=== PATIENT | male | born 1980 | race Caucasian/White ===

== ENCOUNTER 2018-10-10 06:34 | Emergency (ER) | payer MEDICAID, OTHER ==
[2018-10-10] MEDS ORDERED: KETOROLAC 30 MG/ML 1 ML VIAL IVP STA (07:14)
[2018-10-10] MEDS ORDERED: SODIUM CHLORIDE 0.9% 1,000 ML IV STA (07:14)
--- NOTE | 2018-10-10 07:17 | ED ---
General Adult HPI - General Chief complaint: Abdominal Pain Stated complaint: [facility]-FALL,ABD PAIN Source: patient Mode of arrival: ambulatory Limitations: no limitations - Related Data Home Medications Medication Instructions Recorded Confirmed Ibuprofen [Motrin Ib] 400 mg PO Q6H PRN 10/10/18 10/10/18 Previous Rx's Medication Instructions Recorded Polyethylene Glycol 3350 [Miralax] 17 gm PO DAILY #4 packet 10/10/18 Allergies Allergy/AdvReac Type Severity Reaction Status Date / Time No Known Allergies Allergy Verified 10/10/18 07:24 Review of Systems ROS Statement: Those systems with pertinent positive or pertinent negative responses have been documented in the HPI. ROS Other: All systems not noted in ROS Statement are negative. Past Medical History Past Medical History: No Reported History History of Any Multi-Drug Resistant Organisms: None Reported Past Surgical History: Orthopedic Surgery Additional Past Surgical History / Comment(s): patella surgery right knee Past Anesthesia/Blood Transfusion Reactions: No Reported Reaction Past Psychological History: No Psychological Hx Reported Smoking Status: Current every day smoker Past Alcohol Use History: None Reported Past Drug Use History: None Reported - Past Family History Mother History Unknown: Yes Family Medical History: No Reported History General Exam Limitations: no limitations Course Vital Signs 10/10/18 06:38 Temperature 97.7 F Pulse Rate 53 L Respiratory 18 Rate Blood Pressure 129/85 O2 Sat by Pulse 100 Oximetry Medical Decision Making - Medical Decision Making Dictation was produced using [employer] dictation software. please excuse any grammatical, word or spelling errors. Chief Complaint: 37-year-old male in no apparent medical problems presents with abdominal pain. History of Present Illness: Patient is 37-year-old male. Patient was at work when he slipped. He grabbed hold of the gate door. He states that he slipped. During the event he hurt his abdomen. Denies any trauma directly to the abdomen. Patient states he has no nausea or vomiting. Patient states that his pain is worse with flexing of the abdominal muscles, truncal rotation and palpation to the area. The ROS documented in this emergency department record has been reviewed and confirmed by me. Those systems with pertinent positive or negative responses have been documented in the HPI. All other systems are other negative and/or noncontributory. PHYSICAL EXAM: General Impression: Alert and oriented x3, not in acute distress HEENT: Normocephalic atraumatic, extra-ocular movements intact, pupils equal and reactive to light bilaterally, mucous membranes moist. Cardiovascular: Heart regular rate and rhythm, S1&S2 audible, no murmurs, rubs or gallops Chest: Lungs clear to auscultation bilaterally, no rhonchi, no wheeze, no rales Abdomen: Bowel sounds present, abdomen soft, tenderness to palpation to the left abdomen Musculoskeletal: Pulses present and equal in all extremities, no peripheral edema Motor: Power 5/5 bilaterally, no focal deficits noted Neurological: CN II-XII grossly intact, no focal motor or sensory deficits noted Skin: Intact with no visualized rashes vital signs upon arrival are within acceptable limits. Psych: Normal affect and mood exam: No internal or groin bulge with Valsalva ED course: 37-year-old male presents with abdominal pain. Vital signs upon arrival are within acceptable limits. Laboratory evaluation obtained showing no remarkable findings. Computed tomography scan was obtained showing moderate fecal retention. Patient given Toradol. He is feeling better. Patient also given intravenous fluids. Patient's symptoms could be secondary to strain versus constipation. Patient given prescription for MiraLAX. Told to rest over the weekend. Advised to take by mouth [id number] analgesics for his pain symptoms. - Lab Data Result diagrams: 10/10/18 07:45 10/10/18 07:45 Lab Results 10/10/18 10/10/18 10/10/18 Range/Units 07:45 07:45 07:45 WBC 6.5 (3.8-10.6) k/uL RBC 4.59 (4.30-5.90) m/uL Hgb 13.9 (13.0-17.5) gm/dL Hct 42.4 (39.0-53.0) % MCV 92.2 (80.0-100.0) fL MCH 30.3 (25.0-35.0) pg MCHC 32.9 (31.0-37.0) g/dL RDW 12.6 (11.5-15.5) % Plt Count 202 (150-450) k/uL Neutrophils % 70 % Lymphocytes % 20 % Monocytes % 5 % Eosinophils % 3 % Basophils % 0 % Neutrophils # 4.6 (1.3-7.7) k/uL Lymphocytes # 1.3 (1.0-4.8) k/uL Monocytes # 0.3 (0-1.0) k/uL Eosinophils # 0.2 (0-0.7) k/uL Basophils # 0.0 (0-0.2) k/uL PT 9.8 (9.0-12.0) sec INR 0.9 (<1.2) Sodium 141 (137-145) mmol/L Potassium 5.2 H (3.5-5.1) mmol/L Chloride 106 (98-107) mmol/L Carbon Dioxide 26 (22-30) mmol/L Anion Gap 9 mmol/L BUN 17 (9-20) mg/dL Creatinine 0.75 (0.66-1.25) mg/dL Est GFR (CKD-EPI)AfAm >90 (>60 ml/min/1.73 sqM) Est GFR (CKD-EPI)NonAf >90 (>60 ml/min/1.73 sqM) Glucose 104 H (74-99) mg/dL Calcium 9.4 (8.4-10.2) mg/dL Disposition Clinical Impression: Abdominal pain Disposition: HOME SELF-CARE Condition: Good Instructions (If sedation given, give patient instructions): Abdominal Pain (ED ) Prescriptions: Polyethylene Glycol 3350 [Miralax] 17 gm PO DAILY #4 packet Is patient prescribed a controlled substance at d/c from ED?: No Referrals: Farshad Pak DO [Primary Care Provider] - 1-2 days Time of Disposition: 09:03
[2018-10-10 08:00] LABS: Basophils % (A) 0 %; Eosinophils # (A) 0.2 k/uL (0-0.7); Eosinophils % (A) 3 %; HCT 42.4 % (39.0-53.0); HGB 13.9 gm/dL (13.0-17.5); Lymphocytes # (A) 1.3 k/uL (1.0-4.8); Lymphocytes % (A) 20 %; MCH 30.3 pg (25.0-35.0); MCHC 32.9 g/dL (31.0-37.0); MCV 92.2 fL (80.0-100.0); Mean Platelet Volume 6.8; Monocytes # (A) 0.3 k/uL (0-1.0); Monocytes % (A) 5 %; Neutrophils # (A) 4.6 k/uL (1.3-7.7); Neutrophils % (A) 70 %; Platelet Count 202 k/uL (150-450); RBC 4.59 m/uL (4.30-5.90); RDW 12.6 % (11.5-15.5); WBC 6.5 k/uL (3.8-10.6)
[2018-10-10 08:08] LABS: Anion Gap 9 mmol/L; Blood Urea Nitrogen 17 mg/dL (9-20); Calcium 9.4 mg/dL (8.4-10.2); Carbon Dioxide 26 mmol/L (22-30); Chloride 106 mmol/L (98-107); Glucose 104 mg/dL (74-99); Potassium 5.2 mmol/L (3.5-5.1); Sodium 141 mmol/L (137-145)
[2018-10-10 08:14] LABS: INR 0.9 (<1.2); Prothrombin Time 9.8 sec (9.0-12.0)
--- NOTE | 2018-10-10 08:34 | CT ---
EXAMINATION TYPE: CT abdomen pelvis w con DATE OF EXAM: 10/10/2018 COMPARISON: None INDICATION: Fall-Abdominal pain DLP: 1229.7 mGycm, Automated exposure control for dose reduction was used. CONTRAST: 100 ml mL of Isovue 300. Study performed without Oral Contrast TECHNIQUE: Axial images were obtained from above the diaphragm to the pubic rami in the axial plane a t 5 mm thick sections. Reconstructed images are reviewed on the computer in the coronal plane. FINDINGS: Limited CT sections are obtained the lung bases. The lung bases are clear. CT ABDOMEN: Liver: Normal Spleen: Normal Pancreas: Normal Adrenal glands: The adrenal glands are normal. Gallbladder: Normal Kidneys: No masses are evident. No hydronephrosis is present. No cysts are present. Delayed images were obtained through the kidneys, which remain unremarkable. Aorta: Normal Inferior vena cava: Normal. CT PELVIS: Loops of bowel within the abdomen and pelvis are normal. Abundant fecal debris is present through out the colon to the level the rectum. There is some fecal debris within the small bowel loops. Appendix: Normal as visualized. Urinary bladder: Normal. Genitourinary structures: Prostate is unremarkable Osseous structures: No suspicious lytic or sclerotic lesions. IMPRESSIONS: 1. Moderate fecal retention throughout the colon. Some fecal debris is in the terminal ileum
[2018-10-10 09:16] VITALS: BP 111/72; PULSE 55; RESP 20; TEMP 98.1
== END 2018-10-10 09:26 | disposition home or self-care (01) ==
LOC: EC 06:34
DX: R10.9 Unspecified abdominal pain (principal); K59.00 Constipation, unspecified; F17.200 Nicotine dependence, unspecified, uncomplicated; W01.0XXA Fall on same level from slipping, tripping and stumbling without subsequent striking against object, initial encounter; Y92.69 Other specified industrial and construction area as the place of occurrence of the external cause; Y99.0 Civilian activity done for income or pay
CPT/HCPCS: 99284; 96374; 96361; 36415; 80048; 85025; 85610; 74177; J1885; Q9967

== ENCOUNTER → 2024-09-04 | Outpatient (CLI) | payer BC ==
--- NOTE | 2024-09-20 09:59 | MR ---
EXAMINATION TYPE: MR ankle LT wo con DATE OF EXAM: 09/04/2024 9:37 PM COMPARISON: None. 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 FINDINGS: Some cystic change and increased T2 signal involving the posterior inferior talus at the ar ticulation with the calcaneus. There is subtle increased T2 signal involving the adjacent superior ca lcaneus. Some loss of normal sinus tarsi fat is seen at this level. There is mild to moderate narrowing at the calcaneal cuboid joint. There is mild to moderate narrowin g and spurring at the talonavicular joint. Lisfranc joints are maintained. An os trigonum is seen. Andrade rrounding edema is noted. No definitive significant osseous edema. No joint effusion. Intact anterior and posterior syndesmosis. Intact anterior and posterior talofibular ligaments. The l atter is thickened. Intact but thickened medial deltoid ligaments. Distal Achilles tendon is intact. Visualized plantar fascia is unremarkable. Intact PT tendon. Intact peroneal tendons. IMPRESSION: 1. Os trigonum with possible posterior impingement, correlate clinically. 2. 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 3. Grade 1 or 2 injury to the posterior talofibular and the medial deltoid ligaments suspected chroni c. [facility], , 09/20/2024 9:57 AM
== END | disposition home or self-care (01) ==
LOC: RADMRIMAIN 21:45
PROVIDERS: ATTEND Podiatrist
DX: M25.772 Osteophyte, left ankle (principal); M12.872 Other specific arthropathies, not elsewhere classified, left ankle and foot

== ENCOUNTER 2024-10-09 07:55 | Day surgery (SDC) | payer BC, OTHER ==
[~2024-10-09 07:55] MED LIST: HYDROmorphone 0.5 MG/0.5 ML SYRINGE IVP PRN
[2024-10-09] MEDS: IV FLUID CONTINUATION 1,000 ML IV ONE (08:39)
[2024-10-09] MEDS: LACTATED RINGERS 1,000 ML IV SCH (08:43)
[2024-10-09] MEDS: DEXAMETHASONE SOD PHOSPHATE 4 MG/ML 1 ML VIAL IV ONE (08:47)
[2024-10-09] MEDS: ONDANSETRON 4 MG/2 ML VIAL IVP ONE (08:47)
[2024-10-09] MEDS: MIDAZOLAM 2 MG/2 ML VIAL IV ONE (08:50)
[2024-10-09] MEDS ORDERED: fentaNYL (PF) 50 MCG/ML 2 ML AMP ONE (10:14)
[2024-10-09] MEDS ORDERED: diphenhydrAMINE 50 MG/ML 1 ML VIAL ONE (10:14)
[2024-10-09] MEDS ORDERED: PROPOFOL 10 MG/ML 20 ML VIAL IV ONE (10:14)
[2024-10-09] MEDS ORDERED: MIDAZOLAM 2 MG/2 ML VIAL ONE (10:14)
[2024-10-09] MEDS ORDERED: DEXAMETHASONE SOD PHOSPHATE 4 MG/ML 1 ML VIAL ONE (10:14)
[2024-10-09] MEDS ORDERED: ROPIVACAINE 5 MG/ML 30 ML VIAL ONE (10:14)
[2024-10-09] MEDS ORDERED: LIDOCAINE 1% INJ 10MG/ML (20 ML MDV) ONE (10:14)
[2024-10-09] MEDS: ceFAZolin 1,000 MG in SODIUM CHLORIDE 0.9% 1,000 ML IRRIGATION ONE (10:34)
[2024-10-09 11:31] VITALS: TEMP 98
--- NOTE | 2024-10-09 11:53 | P.OP ---
Date of Procedure: 10/09/24 Preoperative Diagnosis: Loose bodies left ankle Postoperative Diagnosis: 1. Left ankle instability 2. Loose bodies left ankle Procedure(s) Performed: 1. Secondary repair of left lateral ankle ligaments 2. Left ankle arthrotomy with removal of loose bodies Implants: Arthrex internal brace Arthrex knotless fiber tack anchors x 2 Anesthesia: BE Surgeon: Saravanan Pitts Estimated Blood Loss (ml): 5 Pathology: none sent Condition: stable Disposition: PACU Description of Procedure: Prior to the patient being brought to the op room, anesthesia administered a nerve block on the left lower extremity. The patient was brought into the operative room and placed on table in supine position. Timeout was taken to confirm correct patient identifiers, correct laterality of surgery, and correct procedure. Once all staff in the room was in agreement with the timeout, the patient was induced and placed under general anesthesia. A well-padded tourniquet was placed in the left calf and a wedge beneath the left hip to internally rotate the left leg. The left leg was then prepped and draped in usual manner. The left leg was exsanguinated and the tourniquet inflated to 250 mmHg Attention was directed over the anterior lateral ankle where a curved incision was made just anterior to the lateral malleolus. The incision was deepened down to the subcutaneous tissue careful to identify, void, and retract any neurovascular structures and cauterize any bleeding vessels. Blunt dissection was continued down to the ankle joint capsule. The ligamentous and capsular structures were sharply excised off the anterior surface of the lateral malleolus. A rongeur was used to remove the cortical bone of the anterior surface of the lateral malleolus to facilitate ligament re-adhesion upon repair, and the roughened edges were smoothed with a rasp. There there was a palpable loose body adjacent to the talar neck that was able to be isolated and excised from the surrounding soft tissue. Further inspection and palpation noted that there was a second loose body, larger than the first, in the same area that was also removed. A third much smaller loose body was also found and retrieved. The incision site was then thoroughly irrigated with antibiotic saline. Then focus was changed to the repair of the lateral ankle ligaments. With the ankle neutral position, the anterior lateral surface of the talus was palpated for the area just anterior to the trochlear surface. A guidewire was placed laterally through this area and advanced into the talar body in a way that avoided the subtalar and ankle joints. AP foot, AP ankle, and lateral ankle view showed proper positioning of the wire. Over drilling was done to proper depth over the wire. The hole was tapped and a 4.75 mm swivel lock was inserted and advanced down to full depth. The brim flexer was removed and the suture set aside. The same drill was used for the 3.5 mm anchor in the lateral malleolus. Once that was completed drill holes for the fiber tack anchors were made, 1 inferior and 1 superior to the 3.4 mm drill hole. With the brim flexer still left in place after drilling, the anchor was inserted and impacted down to proper depth. The brim flexer was removed and a light pressure was placed on the suture to lock the anchor in place. The surgical site was thoroughly irrigated with antibiotic saline. The working stitch on the first fiber tack was used as a mattress suture on the distal ligamentous and capsular structures then it was fed through the passing suture and brought through the anchor but not fully tightened. The same process was used for the more distal anchor. Then with the ankle in maximum dorsiflexion and eversion, the working sutures were both tightened to lock the ligaments against the anterior surface of the lateral malleolus. Once completed the ankle was checked for stability which showed a negative anterior drawer and inversion stress. The suture ends were cut and then the sutures from the 4.75 anchor were fed through the eyelet of the 3.5 mm anchor. The anchor was aligned with the drill hole and then utilizing proper tensioning techniques the anchor and suture were advanced into the drill hole and then the anchor was advanced to lock the suture in place. Stability testing indicated the ankle was stable without any anterior drawer and inversion stress. The wound was irrigated thoroughly with antibiotic saline. The retinaculum was then repaired with 0 Vicryl. Subcutaneous closure was done with 4 Monocryl. And skin closure done with 4-0 Stratafix in a running subcuticular manner. Dermal glue was applied. Steri-Strips were placed over the incision. An Arthrex jumpstart and a dry sterile dressing applied to the left ankle. The tourniquet was released and capillary refill returned all digits on the left foot. The patient was placed in a well-padded, well molded plaster posterior mold splint. The ankle was held in neutral position until the splint was dried. Anesthesia was reversed and the patient was taken recovery with vital signs stable.
[2024-10-09 12:50] VITALS: BP 102/67; PULSE 46; RESP 18
--- NOTE | 2024-10-11 16:53 | P.ANPRN ---
Procedure Note - Anesthesia - Nerve Block Performed Left Adductor Canal Single Time Out Performed: Yes Date of Procedure: 10/09/24 Procedure Start Time: 08:50 Procedure Stop Time: 08:53 Location of Patient: PreOp Indication: Acute Post-Operative Pain, Requested by Surgeon Sedation Type: Sedate with meaningful contact maintained Preparation: Sterile Prep Position: Supine Needle Types: Pajunk Needle Gauge: 21 Ultrasound used to visualize needle placement: Yes Ultrasound used to observe medication spread: Yes Blood Aspirated: No Pain Paresthesia on Injection Noted: No Resistance on Injection: Normal Image Stored and Saved: Yes Events: Uneventful and Well Tolerated (Ropivacaine 0.5% 20 cc plus dexamethasone 4 mg)
--- NOTE | 2024-10-11 16:55 | P.ANPRN ---
Procedure Note - Anesthesia - Nerve Block Performed Left Popliteal Single Time Out Performed: Yes Date of Procedure: 10/09/24 Procedure Start Time: 08:54 Procedure Stop Time: 08:57 Location of Patient: PreOp Indication: Acute Post-Operative Pain, Requested by Surgeon Sedation Type: Sedate with meaningful contact maintained Preparation: Sterile Prep Position: Right Lateral Needle Types: Pajunk Needle Gauge: 21 Ultrasound used to visualize needle placement: Yes Ultrasound used to observe medication spread: Yes Blood Aspirated: No Pain Paresthesia on Injection Noted: No Resistance on Injection: Normal Image Stored and Saved: Yes Events: Uneventful and Well Tolerated (Ropivacaine 0.5% 20 cc plus dexamethasone 4 mg)
== END 2024-10-09 13:39 | disposition home or self-care (01) ==
LOC: OR 07:55
PROVIDERS: ATTEND Podiatrist
DX: M19.072 Primary osteoarthritis, left ankle and foot (principal); M25.372 Other instability, left ankle; G89.18 Other acute postprocedural pain; M24.072 Loose body in left ankle
CPT/HCPCS: 64447; 64445; 27695; C1713 ×3; J2250; J1100; J0690 ×2; J2405